=== PATIENT | female | born 1985 | race Caucasian/White ===

== ENCOUNTER 2017-07-04 22:12 | Emergency (ER) | payer MEDICAID, OTHER ==
--- NOTE | 2017-07-04 22:38 | ERPHSYRPT ---
- History of Present Illness Time Seen by Provider: 07/04/17 22:32 Historian: patient Exam Limitations: no limitations Physician History: The patient is a 31-year-old female with her mother complaining of abdominal cramping that is worsening since this morning. Her last booster. Began 3 days ago and has ended today. Her menstrual period usually lasts about 7 days. She denies being sexually active. She took 2 regular strength Tylenol this morning. She is slightly nauseated but denies vomiting. She has no diarrhea. Timing/Duration: today Activities at Onset: none Quality: cramping Abdominal Pain Onset Location: suprapubic Pain Radiation: no radiation Severity of Pain-Max: moderate Severity of Pain-Current: moderate Modifying Factors: Improves With: nothing Associated Symptoms: nausea Previous symptoms: no prior history Allergies/Adverse Reactions: azithromycin [From Zithromax] Allergy (Verified 07/04/17 22:33) Home Medications: Cetirizine HCl [Zyrtec] 10 mg PO DAILY 07/04/17 [History] - Review of Systems Constitutional: No Fever, No Chills Eyes: No Symptoms Ears, Nose, & Throat: No Symptoms Respiratory: No Cough, No Dyspnea Cardiac: No Chest Pain, No Edema, No Syncope Abdominal/Gastrointestinal: Abdominal Pain (cramping) Genitourinary Symptoms: No Dysuria Musculoskeletal: No Back Pain, No Neck Pain Skin: No Rash Neurological: No Dizziness, No Focal Weakness, No Sensory Changes Psychological: No Symptoms Endocrine: No Symptoms Hematologic/Lymphatic: No Symptoms Immunological/Allergic: No Symptoms All Other Systems: Reviewed and Negative - Nursing Vital Signs Nursing Vital Signs: Initial Vital Signs Temperature 98.1 F 07/04/17 22:22 Pulse Rate 102 H 07/04/17 22:22 Respiratory Rate 18 07/04/17 22:22 Blood Pressure 139/88 07/04/17 22:22 O2 Sat by Pulse Oximetry 100 07/04/17 22:22 Pain Scale Pain Intensity 6 - Physical Exam General Appearance: no apparent distress, alert Eye Exam: PERRL/EOMI, eyes nml inspection Ears, Nose, Throat Exam: normal ENT inspection, pharynx normal, moist mucous membranes Neck Exam: normal inspection, non-tender, supple, full range of motion Respiratory Exam: normal breath sounds, lungs clear, No respiratory distress Cardiovascular Exam: regular rate/rhythm, normal heart sounds Gastrointestinal/Abdomen Exam: soft, No tenderness, No mass Pelvic Exam: not done Rectal Exam: not done Back Exam: normal inspection, normal range of motion, No CVA tenderness, No vertebral tenderness Extremity Exam: normal inspection, normal range of motion, pelvis stable Neurologic Exam: alert, oriented x 3, cooperative, normal mood/affect, nml cerebellar function, sensation nml, No motor deficits Skin Exam: normal color, warm, dry SpO2 Interpretation: normal Ordered Tests: Active Orders 24 hr Category Date Time Status IV Insertion STAT Care 07/04/17 22:41 Active CBC W DIFF Stat Lab 07/04/17 22:48 Completed CMP Stat Lab 07/04/17 22:48 Completed HCG QUALITATIVE,SERUM Stat Lab 07/04/17 22:48 Completed UA W/ MICROSCOPIC Stat Lab 07/04/17 22:30 Completed Medication Summary Generic Name Dose Route Start Last Admin Trade Name Freq PRN Reason Stop Dose Admin Potassium Chloride 40 meq 07/05/17 00:04 Klor Con 10 Meq PO 07/05/17 00:05 STAT ONE Discontinued Medications Generic Name Dose Route Start Last Admin Trade Name Freq PRN Reason Stop Dose Admin Sodium Chloride 1,000 mls @ 999 mls/hr 07/04/17 22:41 07/04/17 23:01 Sodium Chloride 0.9% 1000 Ml IV 07/04/17 23:41 999 mls/hr .Q1H1M STA Administration Sodium Chloride Confirm 07/04/17 22:55 Sodium Chloride 0.9% 1000 Ml Administered 07/04/17 22:56 Dose 1,000 mls @ ud .ROUTE .STK-MED ONE Ketorolac Tromethamine 30 mg 07/04/17 22:41 07/04/17 23:01 Toradol 30 Mg Injection IV 07/04/17 22:42 30 mg STAT ONE Administration Ketorolac Tromethamine Confirm 07/04/17 22:55 Toradol 30 Mg Injection Administered 07/04/17 22:56 Dose 30 mg .ROUTE .STK-MED ONE Ondansetron HCl 4 mg 07/04/17 22:41 07/04/17 23:01 Zofran 4 Mg/2 Ml Vial IV 07/04/17 22:42 4 mg STAT ONE Administration Ondansetron HCl Confirm 07/04/17 22:55 Zofran 4 Mg/2 Ml Vial Administered 07/04/17 22:56 Dose 4 mg .ROUTE .STK-MED ONE Lab/Rad Data: Laboratory Result Diagrams 07/04/17 22:48 07/04/17 22:48 Laboratory Results 07/04/17 07/04/17 07/04/17 Range/Units 22:48 22:48 22:48 WBC 10.7 H (4.0-10.5) K/mm3 RBC 4.17 (4.1-5.4) M/mm3 Hgb 13.2 (12.0-16.0) gm/dl Hct 39.3 (35-47) % MCV 94.2 (78-100) fl MCH 31.7 (26-32) pg MCHC 33.6 (32-36) g/dl RDW 13.1 (11.5-14.0) % Plt Count 343 (150-450) K/mm3 MPV 9.1 (6-9.5) fl Gran % 57.3 (36.0-66.0) % Lymphocytes % 27.6 (24.0-44.0) % Monocytes % 5.7 (0.0-12.0) % Eosinophils % 9.2 H (0.00-5.0) % Basophils % 0.2 (0.0-0.4) % Basophils # 0.02 (0-0.4) Sodium 143 (136-145) mEq/L Potassium 3.2 L (3.5-5.1) mEq/L Chloride 106 (98-107) mEq/L Carbon Dioxide 28.0 (21-32) mEq/L Anion Gap 11.9 (5-15) MEQ/L BUN 6 L (9-20) mg/dL Creatinine 0.74 (0.55-1.30) mg/dl Estimated GFR > 60 ML/MIN Glucose 101 (70-110) MG/DL Calcium 9.2 (8.5-10.1) mg/dL Total Bilirubin 0.20 (0.2-1.0) mg/dL AST 22 (15-37) U/L ALT 16 (12-78) U/L Alkaline Phosphatase 62 (46-116) U/L Serum Total Protein 7.3 (6.4-8.2) gm/dL Albumin 4.1 (3.4-5.0) g/dL Serum , Qual NEGATIVE (Negative) Ur Collection Type Urine Color (YELLOW) Urine Appearance (CLEAR) Urine pH (5-6) Ur Specific [place] (1.005-1.025) Urine Protein (Negative) Urine Ketones (NEGATIVE) Urine Blood (0-5) Tc/ul Urine Nitrite (NEGATIVE) Urine Bilirubin (NEGATIVE) Urine Urobilinogen (0-1) mg/dL Ur Leukocyte Esterase (NEGATIVE) Urine Microscopic RBC (0-2) /HPF Ur Epithelial Cells (FEW) /HPF Urine Bacteria (NEGATIVE) /HPF Urine Glucose (NEGATIVE) mg/dL Specimen Received 07/04/17 Range/Units 22:30 WBC (4.0-10.5) K/mm3 RBC (4.1-5.4) M/mm3 Hgb (12.0-16.0) gm/dl Hct (35-47) % MCV (78-100) fl MCH (26-32) pg MCHC (32-36) g/dl RDW (11.5-14.0) % Plt Count (150-450) K/mm3 MPV (6-9.5) fl Gran % (36.0-66.0) % Lymphocytes % (24.0-44.0) % Monocytes % (0.0-12.0) % Eosinophils % (0.00-5.0) % Basophils % (0.0-0.4) % Basophils # (0-0.4) Sodium (136-145) mEq/L Potassium (3.5-5.1) mEq/L Chloride (98-107) mEq/L Carbon Dioxide (21-32) mEq/L Anion Gap (5-15) MEQ/L BUN (9-20) mg/dL Creatinine (0.55-1.30) mg/dl Estimated GFR ML/MIN Glucose (70-110) MG/DL Calcium (8.5-10.1) mg/dL Total Bilirubin (0.2-1.0) mg/dL AST (15-37) U/L ALT (12-78) U/L Alkaline Phosphatase (46-116) U/L Serum Total Protein (6.4-8.2) gm/dL Albumin (3.4-5.0) g/dL Serum , Qual (Negative) Ur Collection Type CLEAN CATCH Urine Color LT.YELLOW (YELLOW) Urine Appearance CLEAR (CLEAR) Urine pH 6.5 (5-6) Ur Specific [place] 1.000 (1.005-1.025) Urine Protein NEGATIVE (Negative) Urine Ketones NEGATIVE (NEGATIVE) Urine Blood 250 (0-5) Tc/ul Urine Nitrite NEGATIVE (NEGATIVE) Urine Bilirubin NEGATIVE (NEGATIVE) Urine Urobilinogen NORMAL (0-1) mg/dL Ur Leukocyte Esterase NEGATIVE (NEGATIVE) Urine Microscopic RBC 5-10 (0-2) /HPF Ur Epithelial Cells RARE (FEW) /HPF Urine Bacteria RARE (NEGATIVE) /HPF Urine Glucose NEGATIVE (NEGATIVE) mg/dL Specimen Received 07/04/17 2230 - Progress Progress: improved Counseled pt/family regarding: lab results, diagnosis - Departure Time of Disposition: 00:08 Departure Disposition: Home Clinical Impression: Abdominal pain, Hypokalemia, Nausea Condition: Stable Critical Care Time: No Additional Instructions: You have abdominal pain and a lowered serum potassium level. You were given Toradol 30 mg, Zofran 4 mg, and fluids by IV in the ER. You were given potassium 40 mEq orally. Take Zofran 4 mg ODT every 6 hours as needed. Follow- up in one to 2 days for a recheck of your potassium level. Prescriptions: Ondansetron ODT 4 MG [Zofran Odt 4 mg] 1 tab PO Q6H PRN PRN #10 tab.rapdis PRN Reason: Nausea/Vomiting
[2017-07-04] MEDS ORDERED: Zofran 4 MG/2 ML VIAL IV ONE (22:41)
[2017-07-04] MEDS ORDERED: Sodium Chloride 0.9% 1000 ML 1,000 ML IV STA (22:41)
[2017-07-04] MEDS ORDERED: TORAdol 30 mg Injection IV ONE (22:41)
[2017-07-04 22:52] LABS: BASOPHIL % 0.2 % (0.0-0.4); Eosinophil % 9.2 % (0.00-5.0); Granulocytes % 57.3 % (36.0-66.0); Lymphocytes % 27.6 % (24.0-44.0); Mean Cell Volume 94.2 fl (78-100); Mean Corpuscular Hemoglobin 31.7 pg (26-32); Mean Platelet Volume 9.1 fl (6-9.5); Monocytes % 5.7 % (0.0-12.0); Platelet Count 343 K/mm3 (150-450); Red Blood Count 4.17 M/mm3 (4.1-5.4); Red Cell Distribution Width 13.1 % (11.5-14.0); White Blood Count 10.7 K/mm3 (4.0-10.5)
[2017-07-04] MEDS ORDERED: TORAdol 30 mg Injection ONE (22:55)
[2017-07-04] MEDS ORDERED: Sodium Chloride 0.9% 1000 ML 1,000 ML ONE (22:55)
[2017-07-04] MEDS ORDERED: Zofran 4 MG/2 ML VIAL ONE (22:55)
[2017-07-04 23:10] LABS: Collection Type CLEAN CATCH
[2017-07-04 23:11] LABS: Bilirubin NEGATIVE (NEGATIVE); Blood 250 Ery/ul (0-5); COMPLETE URINE MICROSCOPIC? YES; Glucose NEGATIVE (NEGATIVE); Leukocyte Esterase NEGATIVE (NEGATIVE)
[2017-07-04 23:11] LABS: ALBUMIN 4.1 g/dL (3.4-5.0); ALKALINE PHOSPHATASE 62 U/L (46-116); ANION GAP 11.9 MEQ/L (5-15); BLOOD UREA NITROGEN 6 mg/dL (9-20); CHLORIDE 106 mEq/L (98-107); Glucose 101 MG/DL (70-110); Potassium 3.2 mEq/L (3.5-5.1); SGOT/AST 22 U/L (15-37); SGPT/ALT 16 U/L (12-78); SODIUM 143 mEq/L (136-145); Total Protein 7.3 gm/dL (6.4-8.2)
[2017-07-04 23:13] LABS: ADD URINE CULTURE? NO (NO); Bacteria RARE /HPF (NEGATIVE); Epithelial Cells RARE /HPF (FEW)
[2017-07-05] MEDS ORDERED: Klor Con 10 MEQ PO ONE ×2 (00:04→00:09)
[2017-07-05 00:19] VITALS: BP 108/63; PULSE 84; O2SAT 100
== END 2017-07-05 00:19 | disposition home or self-care (01) ==
LOC: ED 22:12
DX: R10.9 Unspecified abdominal pain (principal); E87.6 Hypokalemia; R11.0 Nausea
CPT/HCPCS: 36000; 36415; 80053; 81000; 84703; 85025; 96360; 96374; 96375; 99284; J1885; J2405; A9270-GY

== ENCOUNTER 2017-11-07 02:54 | Emergency (ER) | payer OTHER ==
[2017-11-07 03:10] VITALS: BP 121/77; PULSE 82; O2SAT 99
[2017-11-07] MEDS ORDERED: KEFLEX 250 MG PO ONE (03:10)
[2017-11-07] MEDS ORDERED: Robitussin AC Syrup Unit Dose Cup PO PRN (03:11)
[2017-11-07] MEDS ORDERED: KEFLEX 250 MG ONE (03:17)
[2017-11-07] MEDS ORDERED: Robitussin AC Syrup Unit Dose Cup ONE (03:17)
--- NOTE | 2017-11-07 03:20 | ERPHSYRPT ---
- History of Present Illness Time Seen by Provider: 11/07/17 03:05 Source: patient Exam Limitations: no limitations Patient Subjective Stated Complaint: pt states began coughing about 30 min [employer]; no fevers or other symptoms noted Triage Nursing Assessment: cough non productive Physician History: FOR THE PAST 2 WEEKS PT HAS HAD SHARP INTERMITTENT CHEST PAIN LASTING UP TO 2 MINUTES PER EPISODE; FOR THE PAST HOUR COUGH AND WHEEZING. PT DENIES FEVER, ABDOMINAL PAIN, DIAPHORESIS, NAUSEA. Allergies/Adverse Reactions: azithromycin [From Zithromax] Allergy (Verified 07/04/17 22:33) Home Medications: Cetirizine HCl [Zyrtec] 10 mg PO DAILY 07/04/17 [History] Hx Tetanus, Diphtheria Vaccination/Date Given: Yes Hx Influenza Vaccination/Date Given: No Hx Pneumococcal Vaccination/Date Given: No Immunizations Up to Date: Yes - Review of Systems Constitutional: No Fever Respiratory: Cough, Wheezing Cardiac: Chest Pain Abdominal/Gastrointestinal: No Abdominal Pain, No Nausea Endocrine: No Excessive Sweating All Other Systems: Reviewed and Negative - Past Medical History Pertinent Past Medical History: Yes Cardiac History: Other Other Medical History: mitral valve prolapse - Past Surgical History Past Surgical History: Yes Gastrointestinal: Cholecystectomy Female Surgical History: Dilation & Curettage Other Surgical History: lymph node removal - benign - Social History Smoking Status: Current every day smoker Drug Use: none Patient Lives Alone: No - Female History Hx Last Menstrual Period: 10/23/2018 Hx Now: No - Nursing Vital Signs Nursing Vital Signs: Initial Vital Signs Temperature 98.3 F 11/07/17 03:04 Pulse Rate 82 11/07/17 03:04 Respiratory Rate 20 11/07/17 03:04 Blood Pressure 121/77 11/07/17 03:04 O2 Sat by Pulse Oximetry 99 11/07/17 03:04 Pain Scale Pain Intensity 0 - Physical Exam General Appearance: alert Eye Exam: PERRL/EOMI Ears, Nose, Throat Exam: moist mucous membranes, pharyngeal erythema, other ( CERUMEN OCCLUSION OF BOTH EARS) Neck Exam: normal inspection Respiratory Exam: lungs clear Cardiovascular Exam: normal heart sounds Gastrointestinal/Abdomen Exam: soft, normal bowel sounds Back Exam: normal range of motion Extremity Exam: normal inspection, No pedal edema Neurologic Exam: alert, cooperative Skin Exam: warm, dry SpO2 Interpretation: normal SpO2: 99 Oxygen Delivery: Room Air - Course Nursing assessment & vital signs reviewed: Yes Ordered Tests: Medication Summary Generic Name Dose Route Start Last Admin Trade Name Freq PRN Reason Stop Dose Admin Guaifenesin/Codeine Phosphate 10 ml 11/07/17 03:11 Robitussin Ac Syrup Unit Dose Cup PO 12/07/17 03:10 Q4H PRN PRN COUGH Discontinued Medications Generic Name Dose Route Start Last Admin Trade Name Freq PRN Reason Stop Dose Admin Cephalexin HCl 250 mg 11/07/17 03:10 Keflex 250 Mg PO 11/07/17 03:11 STAT ONE - Departure Time of Disposition: 03:20 Departure Disposition: Home Clinical Impression: PHARYNGITIS Condition: Stable Critical Care Time: No Referrals: RODNEY DELACRUZ MD [Primary Care Provider] - Instructions: Cough, Adult (DC) Additional Instructions: FOLLOW UP WITH PRIVATE DOCTOR TOMORROW. Prescriptions: Guaifenesin/Codeine Phosphate [Robitussin AC Syrup] 10 ml PO Q4H PRN PRN #120 ml PRN Reason: Cough Cephalexin Monohydrate [Keflex] 500 mg PO TID #30 capsule
== END 2017-11-07 03:33 | disposition home or self-care (01) ==
LOC: ED 02:54
DX: J02.9 Acute pharyngitis, unspecified (principal); H61.23 Impacted cerumen, bilateral
CPT/HCPCS: 99282; 99283; A9270-GY

== ENCOUNTER 2021-02-16 14:04 | Emergency (ER) | payer OTHER ==
[2021-02-16] MEDS ORDERED: MORPHINE SULFATE 4 MG INJ IV ONE (14:26)
[2021-02-16] MEDS ORDERED: Zofran 4 MG/2 ML VIAL IV ONE (14:26)
[2021-02-16] MEDS ORDERED: BABY ASPIRIN 81 MG CHEW PO ONE (14:26)
[2021-02-16] MEDS ORDERED: GI COCKTAIL 45 ML (Maalox/Lidocaine) PO ONE (14:27)
[2021-02-16] MEDS ORDERED: Zofran 4 MG/2 ML VIAL ONE (14:34)
[2021-02-16] MEDS ORDERED: MORPHINE SULFATE 4 MG INJ ONE (14:34)
[2021-02-16] MEDS ORDERED: BABY ASPIRIN 81 MG CHEW ONE (14:34)
--- NOTE | 2021-02-16 14:35 | ERPHSYRPT ---
- History of Present Illness Time Seen by Provider: 02/16/21 14:06 Historian: patient Exam Limitations: no limitations Patient Subjective Stated Complaint: Pt states that she has had lower left chest pain for the past 2 days that radiates to her back and down her left arm Triage Nursing Assessment: Pt brought to the ER by her father, tony wnl, rates chest pain 8/10, upset stomach that caused diarrhea but denies N&V, pulses normal, skin n/w/d, doesn't appear to be in any distress Physician History: 35 years old female with history of tobacco abuse, mitral valve prolapse presented in the ER with chief complaint of substernal/epigastric area pain since yesterday, dull aching to sharp, moderate intensity, radiating to the back and to left shoulder without any significant aggravating or relieving factors. Patient report having intermittent pain yesterday but since morning it is kind of constant with minimal shortness of breath especially with taking deep breath. Patient denies any fever chills cough or sick contact. Denies any history of DVT/PEs. Not taking any control pills. Does have history of acid reflux and takes omeprazole as needed basis. Timing/Duration: yesterday, intermittent, gradual onset, worse Activities at Onset: rest Quality: sharpness Location: substernal, central Chest Pain Radiation: arm Severity of Pain-Max: moderate Severity of Pain-Current: moderate Modifying Factors: Improves With: nothing Associated Symptoms: nausea Prior Chest Pain/Cardiac Workup: no prior cardiac workup Nitro Today/Relief: no nitro taken today Aspirin Treatment Today: no aspirin today Allergies/Adverse Reactions: azithromycin [From Zithromax] Allergy (Verified 02/16/21 14:12) Home Medications: Cetirizine HCl [Zyrtec] 10 mg PO DAILY 07/04/17 [History] [place]-3 Fatty Acids/Fish Oil [Fish Oil 1,000 mg Capsule] 1 each PO DAILY 1 [History] Hx Tetanus, Diphtheria Vaccination/Date Given: Yes Hx Influenza Vaccination/Date Given: No Hx Pneumococcal Vaccination/Date Given: No Travel Risk - International Travel Have you traveled outside of the country in past 3 weeks: No - Coronavirus Screening Are you exhibiting any of the following symptoms?: No Close contact with a COVID-19 positive Pt in past 14-21 Days: No - Vaccine Status Have you recieved a Covid-19 vaccination: No - Review of Systems Constitutional: No Symptoms Eyes: No Symptoms Ears, Nose, & Throat: No Symptoms Respiratory: Dyspnea Cardiac: Chest Pain, No Palpitations Abdominal/Gastrointestinal: Nausea Genitourinary Symptoms: No Symptoms Musculoskeletal: No Symptoms Skin: No Symptoms Neurological: No Symptoms Psychological: No Symptoms Endocrine: No Symptoms Hematologic/Lymphatic: No Symptoms Immunological/Allergic: No Symptoms - Past Medical History Pertinent Past Medical History: Yes Cardiac History: Other Other Medical History: mitral valve prolapse - Past Surgical History Past Surgical History: Yes Gastrointestinal: Cholecystectomy Female Surgical History: Dilation & Curettage Other Surgical History: lymph node removal - benign - Social History Smoking Status: Current every day smoker Exposure to second hand smoke: Yes Drug Use: none Patient Lives Alone: No - Female History Hx Last Menstrual Period: 02/11/2021 Hx Now: (unkn) - Nursing Vital Signs Nursing Vital Signs: Initial Vital Signs Temperature 98.2 F 02/16/21 14:05 Pulse Rate 100 H 02/16/21 14:05 Blood Pressure 128/89 02/16/21 14:05 O2 Sat by Pulse Oximetry 98 02/16/21 14:05 Pain Scale Pain Intensity 8 - Physical Exam General Appearance: no apparent distress Eye Exam: PERRL/EOMI Ears, Nose, Throat Exam: normal ENT inspection, pharynx normal Neck Exam: normal inspection, supple, full range of motion Respiratory Exam: normal breath sounds, lungs clear, No chest tenderness Cardiovascular Exam: regular rate/rhythm, normal heart sounds Gastrointestinal/Abdomen Exam: soft, normal bowel sounds, No tenderness Back Exam: normal inspection, normal range of motion Extremity Exam: normal inspection, normal range of motion Neurologic Exam: alert, oriented x 3, cooperative Skin Exam: normal color SpO2 Interpretation: normal SpO2: 98 O2 Delivery: Room Air - Course EKG Interpreted by Me: RATE (102), Sinus Tach, NORMAL AXIS, NORMAL INTERVALS, Other (Nonspecific T wave changes) Ordered Tests: Active Orders 24 hr Category Date Time Status Stucco Mason STAT Care 02/16/21 14:26 Active EKG-ER Only STAT Care 02/16/21 14:26 Active IV Insertion STAT Care 02/16/21 14:26 Active CHEST 2 VIEWS (PA AND LAT) Stat Exams 02/16/21 14:26 Completed CBC W DIFF Stat Lab 02/16/21 14:12 Completed CMP Stat Lab 02/16/21 14:12 Completed D-DIMER QUANTITATIVE Stat Lab 02/16/21 14:12 Completed HCG,QUALITATIVE URINE Stat Lab 02/16/21 14:26 Completed LIPASE Stat Lab 02/16/21 14:12 Completed NT PRO BNP Stat Lab 02/16/21 14:12 Completed TROPONIN Q3H Lab 02/16/21 14:12 Completed TROPONIN Q3H Lab 02/16/21 17:30 Ordered TROPONIN Q3H Lab 02/16/21 20:30 Ordered TROPONIN Q3H Lab 02/16/21 23:30 Ordered TROPONIN Q3H Lab 02/17/21 02:30 Ordered Medication Summary Discontinued Medications Generic Name Dose Route Start Last Admin Trade Name Freq PRN Reason Stop Dose Admin Al Hydrox/Mg Hydrox/Simethicone Confirm 02/16/21 14:37 Maalox Es 30 Ml Unit Dose Administered 02/16/21 14:38 Dose 30 ml .ROUTE .STK-MED ONE Aspirin 324 mg 02/16/21 14:26 02/16/21 14:49 Baby Aspirin 81 Mg Chew PO 02/16/21 14:27 324 mg STAT ONE Administration Aspirin Confirm 02/16/21 14:34 Baby Aspirin 81 Mg Chew Administered 02/16/21 14:35 Dose 324 mg .ROUTE .STK-MED ONE Lidocaine HCl Confirm 02/16/21 14:37 Xylocaine Hcl Viscous * Administered 02/16/21 14:38 Dose 15 ml .ROUTE .STK-MED ONE Magnesium Hydroxide 45 ml 02/16/21 14:27 02/16/21 14:49 Gi Cocktail 45 Ml (Maalox/Lidocaine) PO 02/16/21 14:28 45 ml STAT ONE Administration Morphine Sulfate 4 mg 02/16/21 14:26 02/16/21 14:49 Morphine Sulfate 4 Mg Inj IV 02/16/21 14:27 4 mg STAT ONE Administration Morphine Sulfate Confirm 02/16/21 14:34 Morphine Sulfate 4 Mg Inj Administered 02/16/21 14:35 Dose 4 mg .ROUTE .STK-MED ONE Ondansetron HCl 4 mg 02/16/21 14:26 02/16/21 14:48 Zofran 4 Mg/2 Ml Vial IV 02/16/21 14:27 4 mg STAT ONE Administration Ondansetron HCl Confirm 02/16/21 14:34 Zofran 4 Mg/2 Ml Vial Administered 02/16/21 14:35 Dose 4 mg .ROUTE .STK-MED ONE Lab/Rad Data: Laboratory Result Diagrams 02/16/21 14:12 02/16/21 14:12 Laboratory Results 02/16/21 02/16/21 02/16/21 Range/Units 14:26 14:12 14:12 WBC (4.0-10.5) K/mm3 RBC (4.1-5.4) M/mm3 Hgb (12.0-16.0) gm/dl Hct (35-47) % MCV (78-100) fl MCH (26-32) pg MCHC (32-36) g/dl RDW (11.5-14.0) % Plt Count (150-450) K/mm3 MPV (7.5-11.0) fl Gran % (36.0-66.0) % Eos # (Auto) (0-0.5) Absolute Lymphs (auto) (1.0-4.6) Absolute Monos (auto) (0.0-1.3) Lymphocytes % (24.0-44.0) % Monocytes % (0.0-12.0) % Eosinophils % (0.00-5.0) % Basophils % (0.0-0.4) % Absolute Granulocytes (1.4-6.9) Basophils # (0-0.4) D-Dimer (215-500) ng/mL Sodium (137-145) mmol/L Potassium (3.5-5.1) mmol/L Chloride (98-107) mmol/L Carbon Dioxide (22-30) mmol/L Anion Gap (5-15) MEQ/L BUN (7-17) mg/dL Creatinine (0.52-1.04) mg/dL Estimated GFR ML/MIN Glucose (74-106) mg/dL Calcium (8.4-10.2) mg/dL Total Bilirubin (0.2-1.3) mg/dL AST (14-36) U/L ALT (0-35) U/L Alkaline Phosphatase (38-126) U/L Troponin I < 0.012 (0.000-0.034) ng/mL NT-Pro-B Natriuret Pep (0-450) pg/mL Serum Total Protein (6.3-8.2) g/dL Albumin (3.5-5.0) g/dL Lipase 92 (23-300) U/L Urine HCG, Qual NEGATIVE (Negative) 02/16/21 02/16/21 02/16/21 Range/Units 14:12 14:12 14:12 WBC 9.3 (4.0-10.5) K/mm3 RBC 4.31 (4.1-5.4) M/mm3 Hgb 13.9 (12.0-16.0) gm/dl Hct 41.6 (35-47) % MCV 96.5 (78-100) fl MCH 32.3 H (26-32) pg MCHC 33.4 (32-36) g/dl RDW 12.7 (11.5-14.0) % Plt Count 388 (150-450) K/mm3 MPV 9.8 (7.5-11.0) fl Gran % 77.3 H (36.0-66.0) % Eos # (Auto) 0.21 (0-0.5) Absolute Lymphs (auto) 1.36 (1.0-4.6) Absolute Monos (auto) 0.52 (0.0-1.3) Lymphocytes % 14.6 L (24.0-44.0) % Monocytes % 5.6 (0.0-12.0) % Eosinophils % 2.3 (0.00-5.0) % Basophils % 0.2 (0.0-0.4) % Absolute Granulocytes 7.22 H (1.4-6.9) Basophils # 0.02 (0-0.4) D-Dimer 267 (215-500) ng/mL Sodium 139 (137-145) mmol/L Potassium 3.4 L (3.5-5.1) mmol/L Chloride 103 (98-107) mmol/L Carbon Dioxide 26 (22-30) mmol/L Anion Gap 13.0 (5-15) MEQ/L BUN 7 (7-17) mg/dL Creatinine 0.68 (0.52-1.04) mg/dL Estimated GFR > 60.0 ML/MIN Glucose 163 H (74-106) mg/dL Calcium 10.1 (8.4-10.2) mg/dL Total Bilirubin 0.80 (0.2-1.3) mg/dL AST 27 (14-36) U/L ALT 14 (0-35) U/L Alkaline Phosphatase 55 (38-126) U/L Troponin I (0.000-0.034) ng/mL NT-Pro-B Natriuret Pep 81.7 (0-450) pg/mL Serum Total Protein 7.7 (6.3-8.2) g/dL Albumin 4.9 (3.5-5.0) g/dL Lipase (23-300) U/L Urine HCG, Qual (Negative) - Progress Progress: improved Air Movement: good Progress Note: 02/16/21 16:29 35 years old is evaluated for epigastric/substernal chest pain. EKG did not show any acute ST elevations. She is given aspirin along with Protonix and morphine, on reevaluation her pain is completely subsided. Troponins are negative. Normal D-dimers. Chest x-ray negative for any acute cardiopulmonary findings. Grossly unremarkable work-up otherwise. Patient is a low heart score. Pain is going on since yesterday and with one negative troponin, do not think patient needs to stay for second troponin are needs any further work-up. I believe patient has GERD with esophagitis and will start her on Protonix take daily. Discussed signs symptoms of worsening needing return to ER which she seemed understanding. Stable for discharge. Blood Culture(s) Obtained: No Antibiotics given: No Counseled pt/family regarding: lab results, diagnosis, need for follow-up, rad results, smoking cessation - Departure Departure Disposition: Home Clinical Impression: Atypical chest pain GERD with esophagitis Qualifiers: Esophagitis bleeding: without hemorrhage Qualified Code(s): K21.00 - Gastro- esophageal reflux disease with esophagitis, without bleeding Condition: Stable Critical Care Time: No Referrals: RODNEY DELACRUZ MD [ACTIVE STAFF] - (1-2 DAYS FOR RE EVALUATION ) Instructions: Acid Reflux and GERD in Adults (DC), Chest Pain (DC) Additional Instructions: TAKE TYLENOL NEEDED. DONT TAKE IBUPROFEN . FOLLOW UP WITH PCP/ CARDIOLOGY FOR RE EVALUATION . RETURN TO ER FOR WORSENING . Prescriptions: PANTOPRAZOLE 40 mg Tablet [Protonix 40MG Tablet] 40 mg PO QPM 30 Days #30 tab
[2021-02-16] MEDS ORDERED: MAALOX ES 30 ML UNIT DOSE ONE (14:37)
[2021-02-16] MEDS ORDERED: XYLOCAINE HCl Viscous ONE (14:37)
[2021-02-16 14:46] LABS: Absolute Neutrophil Ct (ANC) 7.22 (1.4-6.9); BASOPHIL % 0.2 % (0.0-0.4); Basophil (Absolute #) 0.02 (0-0.4); Eosinophil % 2.3 % (0.00-5.0); Eosinophil (Absolute #) 0.21 (0-0.5); Hematocrit 41.6 % (35-47); Hemoglobin 13.9 gm/dl (12.0-16.0); Lymphocyte (Absolute #) 1.36 (1.0-4.6); Lymphocytes % 14.6 % (24.0-44.0); Mean Cell Volume 96.5 fl (78-100); Mean Corpuscular Hemoglobin 32.3 pg (26-32); Mean Corpuscular Hgb Concent. 33.4 g/dl (32-36); Mean Platelet Volume 9.8 fl (7.5-11.0); Monocyte (Absolute #) 0.52 (0.0-1.3); Monocytes % 5.6 % (0.0-12.0); Neutrophil % 77.3 % (36.0-66.0); Platelet Count 388 K/mm3 (150-450); Red Blood Count 4.31 M/mm3 (4.1-5.4); Red Cell Distribution Width 12.7 % (11.5-14.0); White Blood Count 9.3 K/mm3 (4.0-10.5)
--- NOTE | 2021-02-16 14:51 | XRAY ---
Indication: Chest pain and short of breath. Comparison: None PA/lateral chest hyperinflated and clear with incidental tiny right upper lobe calcified granuloma. Heart and mediastinal structures within normal limits. Bony thorax intact. Impression: Nonacute hyperinflated chest.
[2021-02-16 15:16] LABS: ALBUMIN 4.9 g/dL (3.5-5.0); ALKALINE PHOSPHATASE 55 U/L (38-126); BLOOD UREA NITROGEN 7 mg/dL (7-17); CHLORIDE 103 mmol/L (98-107); Calcium 10.1 mg/dL (8.4-10.2); Carbon Dioxide 26 mmol/L (22-30); Creatinine 1 0.68 mg/dL (0.52-1.04); EST GLOMERULAR FILTRATION RATE > 60.0 ML/MIN; Glucose 163 mg/dL (74-106); NT PRO BNP 81.7 pg/mL (0-450); Potassium 3.4 mmol/L (3.5-5.1); SGOT/AST 27 U/L (14-36); SGPT/ALT 14 U/L (0-35); SODIUM 139 mmol/L (137-145); Total Protein 7.7 g/dL (6.3-8.2)
[2021-02-16 16:32] VITALS: BP 103/65; PULSE 74
[2021-02-16 16:58] VITALS: O2SAT 98
== END 2021-02-16 17:17 | disposition home or self-care (01) ==
LOC: ED 14:04
DX: R07.89 Other chest pain (principal); K21.00 Gastro-esophageal reflux disease with esophagitis, without bleeding
CPT/HCPCS: 36000; 36415; 71046; 80053; 83690; 83880; 84484; 84703; 85025; 85379; 93005; 93041; 96374; 96375; 99284; J2270; J2405; A9270-GY

== ENCOUNTER 2024-06-21 12:31 | Emergency (ER) | payer OTHER ==
[2024-06-21 12:44] VITALS: RESP 18; TEMP 98
[2024-06-21 13:14] VITALS: BP 117/78; PULSE 87; O2SAT 98
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
--- NOTE | 2024-06-21 20:03 | XRAY ---
Indication: Pain following injury 2-3 days ago. Comparison: None 2 view right lower leg demonstrates normal bones, articulations, and soft tissues.
== END 2024-06-21 13:28 | disposition home or self-care (01) ==
LOC: ED 12:31
DX: S80.11XA Contusion of right lower leg, initial encounter (principal); W20.8XXA Other cause of strike by thrown, projected or falling object, initial encounter
CPT/HCPCS: 73590; 99283